=== PATIENT | male | born 1995 | race Caucasian/White ===

== ENCOUNTER 2023-02-16 09:41 | Day surgery (SDC) | payer OTHER, MEDICAID, SELFPAY ==
--- NOTE | 2023-02-16 | ESO_PTH ---
PATIENT: LOUIE PRIETO LOC: EN U#:[id number] AGE/SX: 27/M ROOM: RE02/16/[address]: Dr. Geoff Brar DO : 1995 BED: DIS: 02/16/2023 SPEC #: [id number] RECD: 02/16/23 13:12 STATUS: ABNER REQ #: [id number] CHIDI: 02/16/23 00:[address]: Geoff Brar DEPT: SURGICAL PATHOLOGY RECD BY: Brian Medley ENTERED: 02/16/23 13:12 SP TYPE: LINDA GALVAN DR: Dr. Max Mariee MD Tissues: Esophagus, NOS Procedures: Surgery Specimen Level IV HEADER OPERATION: EGD ([facility] biopsy, dilation PRE-OP DIAGNOSIS: Eosinophilic esophagitis TISSUE SUBMITTED: Proximal esophagus biopsy MICROSCOPIC DIAGNOSIS Proximal esophagus, biopsy: No pathologic change. AM:trixie 02/17/2023 MICROSCOPIC DESCRIPTION Slides are reviewed. GROSS DESCRIPTION Received in fixative is one container labeled with the patient's name and designated proximal esophagus biopsy. The specimen consists of multiple irregular fragments of light flores soft tissue that in aggregate measure 1.0 x 0.5 x 0.1 cm. The specimen is totally submitted in one cassette. / AM:trixie 02/16/2023 TC:5 CPT: 79341
--- NOTE | 2023-02-16 09:49 | PCM.HP.BLA ---
History and Physical Date of Admission: 02/16/23 LOUIE PRIETO, is a 27 M who presents to the office today to establish with adult GI for EOE. Used to see [facility] for EOE which has been well controlled for about 5 yrs on omeprazole 20 mg BID and budesonide 8 mL inh daily. Prior to that he had dysphagia. Required multiple esophageal dilations. Last EGD probably was in 2017. No recent dysphagia, no vomiting. He doesn't appear to have any pain, he is nonverbal. Hx of constipation but bowels are regular on miralax. 04/2022 cbc unremarkable with normal eosinophils, cmp unremarkable ROS Const Constitutional: No fatigue ENT ENT: No difficulty swallowing Gastro GI: No abdominal pain, belching, bloating, change in bowel habits, change in stool character, coffee ground emesis, constipation, cramping, diarrhea, heartburn, difficulty swallowing, feeling full early, excessive flatus, incontinent of stools, Vomiting blood/hematemesis, Blood in stool, loose stools, Black,tarry stools, nausea/dyspepsia, pain with swallowing, vomiting or other Musc Musculoskeletal: No joint pain Skin Skin: No yellowing of the eye or itchy eyes Psych Psychiatric: No anxiety and No depression Endo Endocrine: No fatigue Aller/Imm Allergy/Immunologic: No itchy eyes Chad/Lymp Hematologic/Lymphatic: No easy bleeding or easy bruising Exam Const General: cooperative and comfortable Nutritional Appearance: average body habitus Orientation: alert and awake Other: nonverbal Quality Reporting Tobacco Screening ([facility] 138) Smoking Status: Never smoker Assessment and Plan Assessment and Plan (1) Eosinophilic esophagitis: ?Status:?Chronic ?Plan: Current regimen is effective so will continue with omeprazole 20 mg bid and budesonide inh daily EGD to eval esophagus, f/u in office 2 wks later to discuss bx results I have examined the patient and the H&P has been reviewed. There are no clinical changes since date of exam.
[2023-02-16] MEDS: Lactated Ringers 1,000 ML 15 ML IV (10:25)
[2023-02-16 10:26] VITALS: BP 103/71; PULSE 77; RESP 16; TEMP 37.2; O2SAT 96; BMI 21.0
--- NOTE | 2023-02-16 10:30 | SUR.PREOP ---
pt non verbal. questions answered by parents
[2023-02-16 11:05] VITALS: BP 100/63; BP 103/71; PULSE 89; RESP 16; TEMP 36.7; O2SAT 95
[2023-02-16 11:10] VITALS: BP 103/71; BP 98/67; PULSE 85; RESP 16; O2SAT 96
--- NOTE | 2023-02-16 11:10 | OP.CCLET_ITS ---
02/16/2023 Max Mariee Re : Upper GI endoscopy procedure for Yoan Dennis Kodi This procedure was performed on Thursday, February 16, 2023. My impressions and recommendations are as follows: Impressions : - Esophageal mucosal changes secondary to eosinophilic esophagitis. Biopsied. - Esophageal mucosal changes secondary to eosinophilic esophagitis. Dilated. - Normal stomach. - Normal first portion of the duodenum. Recommendations : - Discharge patient to home. - Resume previous diet. - Continue present medications. - Await pathology results. - Repeat upper endoscopy. My findings are described in the full procedure note, which is enclosed. If I can be of further assistance, please feel free to contact me at . Sincerely, Geoff Brar, 02/16/2023 11:09:40 AM This report has been signed electronically.
--- NOTE | 2023-02-16 11:10 | OP.EGD_ITS ---
Patient Name: Yoan Chang Procedure Date: 02/16/2023 10:35 AM Date of : 1995 Age: 27 Procedure: Upper GI endoscopy Indications: Dysphagia Providers: Geoff Brar DO Referring MD: Geoff Brar DO Medicines: Monitored Anesthesia Care Patient Profile: This is a 27 year old male. Refer to note in patient chart for documentation of history and physical. Patient has symptoms of dysphagia with both liquids and solids. The symptoms first began in the remote past. He is status post EGD for dilation three years ago. Complications: No immediate complications. Procedure: Pre-Anesthesia Assessment: - Prior to the procedure, a History and Physical was performed, and patient medications and allergies were reviewed. The risks and benefits of the procedure and the sedation options and risks were discussed with the patient. All questions were answered and informed consent was obtained. Patient identification and proposed procedure were verified by the physician in the pre-procedure area. Mental Status Examination: alert and oriented. Airway Examination: normal oropharyngeal airway and neck mobility. Respiratory Examination: clear to auscultation. CV Examination: normal. Prophylactic Antibiotics: The patient does not require prophylactic antibiotics. Prior Anticoagulants: The patient has taken no previous anticoagulant or antiplatelet agents. After reviewing the risks and benefits, the patient was deemed in satisfactory condition to undergo the procedure. The anesthesia plan was to use monitored anesthesia care (MAC). Immediately prior to administration of medications, the patient was re-assessed for adequacy to receive sedatives. The heart rate, respiratory rate, oxygen saturations, blood pressure, adequacy of pulmonary ventilation, and response to care were monitored throughout the procedure. The physical status of the patient was re-assessed after the procedure. After obtaining informed consent, the endoscope was passed under direct vision. Throughout the procedure, the patient's blood pressure, pulse, and oxygen saturations were monitored continuously. The Endoscope was introduced through the mouth, and advanced to the second part of duodenum. The upper GI endoscopy was accomplished without difficulty. The patient tolerated the procedure well. Scope In: 10:52:10 AM Scope Out: 11:00:59 AM Total Procedure Duration Time 0 hours 8 minutes 49 seconds Findings: Mucosal changes including ringed esophagus, feline appearance and longitudinal furrows were found in the entire esophagus. Biopsies were obtained from the proximal and distal esophagus with cold forceps for histology of suspected eosinophilic esophagitis. Verification of patient identification for the specimen was done. Estimated blood loss was minimal. Mucosal changes including ringed esophagus were found in the proximal esophagus. A guidewire was placed and the scope was withdrawn. Dilation was performed with a Savary dilator with no resistance at 48 Fr. The entire examined stomach was normal. The first portion of the duodenum was normal. Impression: - Esophageal mucosal changes secondary to eosinophilic esophagitis. Biopsied. - Esophageal mucosal changes secondary to eosinophilic esophagitis. Dilated. - Normal stomach. - Normal first portion of the duodenum. Recommendation: - Discharge patient to home. - Resume previous diet. - Continue present medications. - Await pathology results. - Repeat upper endoscopy. Procedure Code(s): --- Professional --- 75743, Esophagogastroduodenoscopy, flexible, transoral; with insertion of guide wire followed by passage of dilator(s) through esophagus over guide wire 73220, 59, Esophagogastroduodenoscopy, flexible, transoral; with biopsy, single or multiple CPT copyright 2017 [employer]. All rights reserved. The codes documented in this report are preliminary and upon business law teacher review may be revised to meet current compliance requirements. Geoff Brar DO 02/16/2023 11:09:40 AM This report has been signed electronically. Number of Addenda: 0 Note Initiated On: 02/16/2023 10:35 AM
[2023-02-16 11:15] VITALS: BP 103/71; BP 96/64; PULSE 64; RESP 16; O2SAT 99
[2023-02-16 11:20] VITALS: BP 103/71; BP 104/63; PULSE 70; RESP 16; TEMP 36.8; O2SAT 99
[2023-02-16 11:52] VITALS: BP 103/71
== END 2023-02-16 12:10 | disposition home or self-care (01) ==
LOC: EN 09:42 → AC 09:44
PROVIDERS: PCP Family Medicine; Referring Provider Family Medicine; Visit Provider Internal Medicine Gastroenterology
PROC: 0DJ08ZZ Inspection of Upper Intestinal Tract, Via Natural or Artificial Opening Endoscopic (ICD-10-PCS; CPT 43235; principal; 2023-02-16 10:40)
DX: K20.0 Eosinophilic esophagitis (principal); R13.10 Dysphagia, unspecified; Z79.899 Other long term (current) drug therapy
CPT/HCPCS: 43239; 43248; 88305; J7120; C1769; J2405

== ENCOUNTER 2023-12-10 06:00 | Day surgery (SDC) | payer MEDICAID, SELFPAY ==
--- OUTSIDE RECORDS SUMMARY | 2023-12-10 06:06 | XMS RPT_ITS | CCD ---
Author Name Unknown Address [address] [place] [address] Organization [facility] Care Team Providers Care Public Health Staff Nurse Name Role Phone RICKY SCHMIDT Primary Care Unavailable RICKY SCHMIDT Admitting Unavailable SANJUANITA RANGEL Consulting Unavailable RICKY SCHMIDT Attending Unavailable PROVIDER, UNKNOWN Consulting Unavailable PROVIDER, UNKNOWN Consulting Unavailable PROVIDER, UNKNOWN Consulting Unavailable Octavio Merritt Primary Care Provider Allergies Allergy Classification Reported Allergen(s) Allergy Type Date of Onset Reaction(s) Facility Macrolides (antibiotic) (2 sources) Macrolides (Antibiotic) Drug Allergy 04-17-20 03 [facility] Penicillins (antibiotic) (1 source) Penicillins Drug Allergy 04-17-20 03 [facility] Shellfish (1 source) Shellfish Food Allergy 02-10-20 14 Unknown [facility] Sulfonamides (antibiotic) (1 source) Sulfonamides (Antibiotic) Drug Allergy 04-17-20 03 [facility] Unclassified (1 source) Dairy-Aid Propensity to adverse reactions to drug 06-23-20 16 Unknown [facility] Work Phone: (1 source) Azithromycin Drug Allergy [facility] Repository (1 source) Macrolides (Antibiotic) Drug allergy (disorder) [facility] Repository (1 source) Penicillin Drug Allergy [facility] Repository (1 source) Shellfish; Translations: [SHELLFISH] Food allergy (disorder) [facility] Repository (1 source) Sulfamethoxazole / Trimethoprim Drug Allergy [facility] Repository (1 source) Sulfonamides (Antibiotic) Drug allergy (disorder) [facility] Repository Medications Completed/Discontinued Medications Medication Drug Class(es) Dates Sig (Normalized) Sig (Original) calcium carbonate 1250 mg oral capsule (1 source) Start: 01-15-2007 CALCI-MIX 500 MG (1,250 MG) CAP Take one(1) tablet daily. 0 01/15/2007 Active Problems Active Problems Problem Classification Problem Date Documented Da te Episodic/Chronic Esophageal disorders (2 sources) Eosinophilic esophagitis; Translations: [Eosinophilic esophagitis] Onset: 03-16-2014 05-11-2016 Chronic Past or Other Problems Problem Classification Problem Date Documented Da te Episodic/Chronic Other gastrointestinal disorders (1 source) Constipation; Translations: [Constipation, unspecified] Onset: 03-21-2016 03-21-2016 Episodic Other nutritional; endocrine; and metabolic disorders (1 source) Developmental delay; Translations: [Unspecified lack of expected normal physiological development in childhood] Onset: 03-21-2016 05-11-2016 Episodic Results Test Name Value Interpretation Reference Range Facil ity Encounters Encounter Date Encounter Type Care Provider Facility Start: 12-25-2020 End: 12-25-2020 Emergency department patient visit [facility] Start: 04-08-2016 End: 04-08-2016 Refill Laurel Ziegler MD Work Phone: Peds Gastroenterology Procedures Date Procedure Procedure Detail Performing Clinician Start: 02-09-2014 H/O: surgery Status post di latation of esophageal stricture Laurel Ziegler MD Work Phone: Plan of Treatment Date Care Activity Detail Author Start: 06-26-2021 Influenza vaccination INFLUENZA (Sea son Ended) [facility] Start: 2016 Urine microalbumin profile DTAP,TDAP ,TD (1 - Tdap) [facility] Start: 2015 HEPATITIS C SCREENING HEPATITIS C SC REENING [facility] Start: 2015 HIV SCREENING HIV SCREENING [facility] Start: 2009 Adult depression [facility] assessment DEPRESSION SCREENING [facility] Start: 2008 HPV VACCINE (1 - Mal e 2-dose series) HPV VACCINE (1 - Male 2-dose series) [facility] Payers Date Payer Category Payer Medicaid MEDICAID [facility] MEDICAID [id number] 2014-Present Medicaid [id number] 2003 Unknown [employer] [place] [facility] [id number] 2003-2019 Indemnity [id number] 1969 Unknown [id number] Unknown [id number] Unknown [id number] Social History Date Type Detail Facility Start: 03-21-2016 Tobacco smoking status NHIS Never sm oker [facility] Start: 03-21-2016 Alcohol intake Not Asked [facility] Start: 1995 Sex Assigned At Not on file [facility] History of Past illness Narrative 05-11-2016 Note Date & Type Note Facility documented as of this encounter (statuses as of 02/26/2021) [facility] Note 04-09-2016 Telephone Encounter - Laurel Ziegler - 04/09/2016 1:31 PM EDT Note Date & Type Note Facility 04-09-2016 Miscellaneous Notes Patient's request for medication is as follows Signed Prescriptions Disp Refills PREVACID 30 mg disintegrating tablet 30 tablet 6 Sig: DISSOLVE ONE TABLET in MOUTH 1/2 HOUR BEFORE BREAKFAST POLINA: No Authorizing Provider: LAUREL ZIEGLER Order entered - escripted. 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 Advance Directive(s) 05/11/2016 9:45 AM Advance Directive(s) 04/15/2016 9:24 AM Additional Source Comments (unrecognized sect ion and content) No Status Records FoundNo Status Records FoundNo Status Records Found INFORMATION SOURCE (unrecogn ized section and content) DATE CREATED AUTHOR AUTHOR'S ORGANIZ ATION 05/13/2022 [facility] DATE CREATED AUTHOR AUTHOR'S ORGANIZ ATION 06/24/2022 [facility] Source Comments (unrecognize d section and content) In the event this informatio n is protected by the Federal Confidentiality of Alcohol and Drug Abuse Patient Records regulations: The Federal rules restrict any use of the information to criminally investigate or prosecute any alcohol or drug abuse patient.[facility] Reason for Visit (unrecogniz ed section and content) FOR RECORDS PERTAINING TO PATIENTS WHO ARE OR HAVE BEEN ENROLLED IN A CHEMICAL DEPENDENCY/SUBSTANCEABUSE PROGRAM, SOME INFORMATION MAY BE OMITTED. This clinical summary was aggregated from multiple sources. Caution should be exercised in using it in the provision of clinical care. This summary normalizes information from multiple sources, and as a consequence, information in this document may materially change the coding, format and clinical context of patient data. In addition, data may be omitted in some cases. CLINICAL DECISIONS SHOULD BE BASED ON THE PRIMARY CLINICAL RECORDS. [employer] [facility]. provides no warranty or guarantee of the accuracy or completeness of information in this document.
[2023-12-10 06:35] VITALS: BP 105/64; PULSE 73; RESP 16; TEMP 36.6; O2SAT 98; BMI 21.9
[2023-12-10] MEDS: Lactated Ringers 1,000 ML 15 ML IV (06:38)
--- NOTE | 2023-12-10 07:00 | EGD_PTH ---
PATHOLOGY RESULTS PATIENT: LOUIE PRIETO LOC: EN U#:[id number] AGE/SX: 28/M ROOM: RE12/10/[address]: Dr. Geoff Brar DO : 1995 BED: DIS: 12/10/2023 SPEC #: [id number] RECD: 12/10/23 10:26 STATUS: ABNER REGal #: [id number] CHIDI: 12/10/23 07:[address]: Geoff Brar DEPT: SURGICAL PATHOLOGY RECD BY: Brionna Perez ENTERED: 12/10/23 11:21 SP TYPE: EGD BIOPSY COLE DR: Dr. Max Mariee MD Tissues: Esophagus, NOS Procedures: Surgery Specimen Level IV HEADER OPERATION: EGD with biopsy PRE-OP DIAGNOSIS: Eosinophilic esophagitis TISSUE SUBMITTED: Random esophagus biopsy MICROSCOPIC DIAGNOSIS Esophagus, random biopsy: Fragments of benign squamous mucosa with mild congestion. See comment. KRISTIE:trixie 12/14/2023 COMMENT Increased number of eosinophils consistent with eosinophilic esophagitis are not seen. Correlation with clinical, endoscopic findings and appropriate follow up are necessary. MICROSCOPIC DESCRIPTION Slides are reviewed. GROSS DESCRIPTION Received in fixative is one container labeled with the patient's name and designated random esophagus biopsy. The specimen consists of multiple irregular fragments of light flores soft tissue that in aggregate measure 0.8 x 0.8 x 0.1 cm. The specimen is totally submitted in one cassette. / SJ/bl 12/10/23 TC: CPT: 47643
--- NOTE | 2023-12-10 07:07 | HP.PCM_ITS ---
History and Physical Date of Admission: 12/10/23 LOUIE PRIETO, is a 28 M who [facility] GI: ? EGD 08.02.19 mucosal changes EOE, 4-15/field; gastritis. *BGI established 12.11.22 to establish with adult GI for previously diagnosed EOE at [facility], well controlled with omeprazole and budesonide for the last 5 years. Reports history of multiple dilations. ? EGD 02.16.23 mucosal changes of EOE with distal narrowing, Savary 48F, EOE not seen on path. No pathologic changes. OV 03.04.23 doing well; recommend Dupixent as budesonide and omeprazole are difficult. OV 11/20/23 Per parents doing well. Does not appear to be in any discomfort recently. ROS Const Constitutional: No fatigue ENT ENT: No difficulty swallowing Gastro GI: No abdominal pain, belching, bloating, change in bowel habits, change in stool character, coffee ground emesis, constipation, cramping, diarrhea, heartburn, difficulty swallowing, feeling full early, excessive flatus, incontinent of stools, Vomiting blood/hematemesis, Blood in stool, loose stools, Black,tarry stools, nausea/dyspepsia, pain with swallowing, vomiting or other Musc Musculoskeletal: No joint pain Skin Skin: No yellowing of the eye or itchy eyes Psych Psychiatric: No anxiety and No depression Endo Endocrine: No fatigue Aller/Imm Allergy/Immunologic: No itchy eyes Chad/Lymp Hematologic/Lymphatic: No easy bleeding or easy bruising Exam Const General: cooperative and no acute distress Other: nonverbal but he smiles and interacts nonverbally Quality Reporting Tobacco Screening ([facility] 138) Smoking Status: Never smoker Assessment and Plan Assessment and Plan (1) Eosinophilic esophagitis: Status: Chronic Plan: Discussed EGD findings and bx result with parents with patient present. They are interested in continuing Dupixent for EOE. Difficult to give budesonide inhaler as well as bid omeprazole. On EGD Dr Brar found signs of EOE--ringed esophagus, feline appearance, longitudinal furrows. Pt required dilation of narrowed rings in proximal esophagus. Pt is under his dad's insurance until he turns 28 in August. Their specialty pharmacy is [facility]. Will request pathology reports from [facility] and [facility]. Orders: Orders EGD 11/27/23 K20.0 - Eosinophilic esophagitis I have examined the patient and the H&P has been reviewed. There are no clinical changes since date of exam.
[2023-12-10 07:25] VITALS: BP 102/66; BP 105/64; PULSE 88; RESP 16; TEMP 36.6; O2SAT 98
--- NOTE | 2023-12-10 07:25 | OP.CCLET_ITS ---
12/10/2023 Max Mariee Re : Upper GI endoscopy procedure for Yoan Dennis Kodi This procedure was performed on November. My impressions and recommendations are as follows: Impressions : - Normal esophagus. - Normal stomach. - No gross lesions in the first portion of the duodenum. - Biopsies were taken with a cold forceps for evaluation of eosinophilic esophagitis. Recommendations : - Discharge patient to home. - Resume previous diet. - Continue present medications. - Await pathology results. My findings are described in the full procedure note, which is enclosed. If I can be of further assistance, please feel free to contact me at . Sincerely, Geoff Brar, 12/10/2023 7:24:55 AM This report has been signed electronically.
--- NOTE | 2023-12-10 07:25 | OP.EGD_ITS ---
Patient Name: Yoan Chang Procedure Date: 12/10/2023 7:13 AM Date of : 1995 Age: 28 Procedure: Upper GI endoscopy Indications: Dysphagia Providers: DO Alicia Russell MD: Max Mariee Medicines: Monitored Anesthesia Care Patient Profile: This is a 28 year old male. Refer to note in patient chart for documentation of history and physical. Patient has symptoms of chronic dysphagia. Complications: No immediate complications. Procedure: Pre-Anesthesia Assessment: - Prior to the procedure, a History and Physical was performed, and patient medications and allergies were reviewed. The patient is competent. The risks and benefits of the procedure and the sedation options and risks were discussed with the patient. All questions were answered and informed consent was obtained. Patient identification and proposed procedure were verified by the physician in the pre-procedure area. Mental Status Examination: alert and oriented. Airway Examination: normal oropharyngeal airway and neck mobility. Respiratory Examination: clear to auscultation. Prophylactic Antibiotics: The patient does not require prophylactic antibiotics. Prior Anticoagulants: The patient has taken no anticoagulant or antiplatelet agents. After reviewing the risks and benefits, the patient was deemed in satisfactory condition to undergo the procedure. The anesthesia plan was to use monitored anesthesia care (MAC). Immediately prior to administration of medications, the patient was re-assessed for adequacy to receive sedatives. The heart rate, respiratory rate, oxygen saturations, blood pressure, adequacy of pulmonary ventilation, and response to care were monitored throughout the procedure. The physical status of the patient was re-assessed after the procedure. After obtaining informed consent, the endoscope was passed under direct vision. Throughout the procedure, the patient's blood pressure, pulse, and oxygen saturations were monitored continuously. The gastroscope was introduced through the mouth, and advanced to the second part of duodenum. The upper GI endoscopy was accomplished without difficulty. The patient tolerated the procedure well. Scope In: 7:16:52 AM Scope Out: 7:19:30 AM Total Procedure Duration Time 0 hours 2 minutes 38 seconds Findings: The examined esophagus was normal. Biopsies were obtained from the proximal and distal esophagus with cold forceps for histology of suspected eosinophilic esophagitis. The entire examined stomach was normal. No gross lesions were noted in the first portion of the duodenum. Impression: - Normal esophagus. - Normal stomach. - No gross lesions in the first portion of the duodenum. - Biopsies were taken with a cold forceps for evaluation of eosinophilic esophagitis. Recommendation: - Discharge patient to home. - Resume previous diet. - Continue present medications. - Await pathology results. Procedure Code(s): --- Professional --- 76680, Esophagogastroduodenoscopy, flexible, transoral; with biopsy, single or multiple CPT copyright 2021 [employer]. All rights reserved. The codes documented in this report are preliminary and upon institution director review may be revised to meet current compliance requirements. Geoff Brar DO 12/10/2023 7:24:55 AM This report has been signed electronically. Number of Addenda: 0 Note Initiated On: 12/10/2023 7:13 AM
[2023-12-10 07:30] VITALS: BP 105/61; BP 105/64; PULSE 83; RESP 18; O2SAT 99
[2023-12-10 07:35] VITALS: BP 103/62; BP 105/64; PULSE 75; RESP 18; TEMP 36.5; O2SAT 100
[2023-12-10 07:56] VITALS: BP 105/64
== END 2023-12-10 08:01 | disposition home or self-care (01) ==
LOC: EN 06:08 → AC 06:08
PROVIDERS: PCP Family Medicine; Referring Provider Family Medicine; Visit Provider Internal Medicine Gastroenterology
PROC: 0DJ08ZZ Inspection of Upper Intestinal Tract, Via Natural or Artificial Opening Endoscopic (ICD-10-PCS; CPT 43235; principal; 2023-12-10 06:55)
DX: K20.0 Eosinophilic esophagitis (principal); G80.9 Cerebral palsy, unspecified; R13.10 Dysphagia, unspecified; Z79.899 Other long term (current) drug therapy; J45.909 Unspecified asthma, uncomplicated
CPT/HCPCS: 43239; 88305; J7120; J2405

== ENCOUNTER 2025-01-13 19:00 | Emergency (ER) | payer MEDICAID, SELFPAY ==
[2025-01-13 19:00] VITALS: BP 121/75; PULSE 125; RESP 20; TEMP 37.2; O2SAT 96; BMI 22.4
--- NOTE | 2025-01-13 19:17 | EDS_ITS ---
HPI HPI - GI History of Present Illness Chief Complaint: Nausea/Vomiting Informant: parent Limited: other (Patient is nonverbal) Nausea/Vomiting/Emesis GI Symptom: Positive for Nausea and Vomiting Quality: Positive for Nonbilious; Negative for Blood streaks, Coffee ground or Hematemesis Diarrhea/Melena/Hematochezia GI Symptom: Negative for Diarrhea, Melena or Hematochezia Associated Symptoms Associated Symptoms: Negative for Dysuria, Frequency or Hematuria Narrative Narrative: Patient presents with nausea and vomiting for the past 3 days. Patient is nonverbal and is a poor informant. Mother states patient has been having some nausea and vomiting but has been able to keep some liquids down. Mother denies any diarrhea, melena, or hematochezia. Mother states the patient has not been indicating any abdominal pain. Mother states patient has been healing tired over the past couple days as well. Mother states patient had a temperature of 100.7 at home today. Mother states the patient has been having a cough. [facility] Medical History Difficulty chewing Difficulty swallowing Gastric reflux Non-smoker Asthma Constipation Eosinophilic esophagitis Cerebral palsy Seizure disorder GERD (gastroesophageal reflux disease) Cognitive developmental delay Home Medications ?Medication ?Instructions ?Recorded ?Last Taken ?Type calcium carbonate (Calcium 500) 500 mg PO DAILY Unknown History multivitamin 1 tab PO DAILY 02/09/23 Unkn own History budesonide 0.25 mg/2 mL suspension 0.25 mg (2 mL) inha lation BID #360 09/27/24 Unknown Rx for nebulization mL dupilumab 300 mg/2 mL subcutaneous 300 mg (2 mL) subcu t QWEEK EOE #8 09/28/24 Unknown Rx pen injector (Dupixent) mL omeprazole 20 mg capsule,delayed 20 mg PO BID #60 caps 12/19/24 Unknown Rx release polyethylene glycol 3350 17 4 g PO DAILY #238 GMS 11/27 02/17 Unknown Rx gram/dose oral powder ondansetron 4 mg disintegrating 4 mg PO Q8H PRN PRN Na usea #10 tabs 01/13/25 Unknown Rx tablet Allergy/AdvReac Type Severity Reaction Status Date / Time azithromycin (From Zithromax) Allergy Intermediate Rash Verified 01/13/25 19:00 Penicillins Allergy Intermediate Rash Verified 01/13/25 19:00 shellfish derived Allergy Intermediate Other Verified 01/13/25 19:00 Sulfa (Sulfonamide Allergy Intermediate Rash Verified 01/13/25 19:00 Antibiotics) milk (dairy) Allergy Other Verified 01/13/25 19:00 Family History no significant family his Surgical History History of esophagogastroduodenoscopy (EGD) Hx of colonoscopy History of myringotomy no surgical history Social History Smoking Status: Never smoker alcohol intake: never ROS ROS ED Review of Systems ROS Unobtainable: other Details: Patient is nonverbal Constitutional Constitutional ED: Reports fever(s); Denies chills ENT ENT ED: Denies rhinorrhea or sore throat Respiratory/Chest Respiratory/Chest: Reports cough; Denies dyspnea Gastrointestinal Gastrointestinal: Reports nausea and vomiting Genitourinary Genitourinary ED: Denies urinary frequency Integumentary Denies abscess or rash Neurologic Neurologic: Denies weakness Allergic/Immunologic Allergic/Immunologic ED: Denies mouth swelling or urticaria EXAM Physical Exam Const Vital Signs: 01/13/25 19:00 01/13/25 21:00 01/13/25 21:56 Temperature 99 F 99.5 F H Temperature Source Temporal Pulse Rate 125 H 92 94 Respiratory Rate 20 H 16 18 Blood Pressure 121/75 H 112/56 L 110/56 L Blood Pressure Mean 90 74 74 Pulse Ox 96 94 96 Oxygen Delivery Method Room Air Room Air Positive well nourished and well developed General Appearance ED: well developed and NAD HEENT Reports moist mucous membranes Neck supple and no JVD Resp normal respiratory effort and clear to auscultation bilaterally Cardio regular rhythm Rate: tachycardic GI non-distended Auscultation: normoactive bowel sounds Palpation: soft Neuro CN's II-XII intact bilaterally Sensorium / Orientation: alert MDM MDM MDM Narrative Medical decision making narrative: Differential diagnosis includes gastroenteritis, viral illness, dehydration, electrolyte abnormality, bowel obstruction, and perforation. Acute abdominal x- rays will be obtained to assess for bowel obstruction and perforation. CBC will be obtained to assess for leukocytosis and anemia. Comprehensive metabolic profile will be obtained to assess for hepatic function, renal function, and electrolyte abnormality. Lipase will be obtained to assess for pancreatitis. Lab Data Attestation: I reviewed the patient's lab results. Lab results narrative: CBC was reviewed and was within normal limits. Comprehensive metabolic profile was reviewed and was within normal limits. Lipase was reviewed and was normal at 27. Labs: Laboratory Results - last 24 hr 01/13/25 19:40 WBC 6.6 RBC 4.51 L Hgb 14.2 Hct 40.4 MCV 89.6 MCH 31.5 MCHC 35.1 RDW Std Deviation 43.4 RDW Coeff of Vladimir 13.2 Plt Count 169 MPV 9.1 Immature Gran % (Auto) 0.300 Neut % (Auto) 68.5 Lymph % (Auto) 22.9 [place] % (Auto) 7.7 Eos % (Auto) 0.3 Baso % (Auto) 0.3 Absolute Neuts (auto) 4.5 Absolute Lymphs (auto) 1.51 Nucleated RBC % 0 Sodium 138 Potassium 3.5 Chloride 99 Carbon Dioxide 23.9 Anion Gap 15 BUN 18 Creatinine 0.61 L Estim Creat Clear Calc 166.72 Est GFR (MDRD) Non-Af 135 BUN/Creatinine Ratio 28.7 H Glucose 100 H Calcium 8.9 Total Bilirubin 0.72 AST 20 ALT 11 Alkaline Phosphatase 63 Total Protein 6.4 Albumin 3.6 Globulin 2.8 Albumin/Globulin Ratio 1.3 Lipase 27 Radiography Diagnostic Testing: Clinical Impression(s) from Imaging Studies Acute Abdomen Series 01/13/25 20:00 IMPRESSION: Marked gaseous distention of the stomach, which is indeterminate and may represent developing bowel obstruction, gastric outlet obstruction or may be idiopathic. Clinical and laboratory correlation recommended. If clinically indicated, gastric tube placement may be useful for decompression. Reading Location: [facility] Acute abdominal x-rays were obtained. There are 4 views. On my independent interpretation, there is distention of the stomach. There are no air-fluid levels noted. There is no evidence of perforation. Radiologist also interpreted the x-rays and agrees. Treatment and Re-Evaluation :: Patient was given IV fluids and Zofran. Patient was feeling better on reevaluation. Patient was able to tolerate p.o. fluids. Patient was given a prescription for Zofran. Patient was instructed to start with a liquid diet and advance as tolerated. Parents were instructed to return if worse in any way. Parents understood and were agreeable with the plan. All questions were answered. Discharge Plan Triage Chief Complaint: Nausea/Vomiting ED Provider: Mani Cavazos Dx/Rx/DC Orders Clinical Impression: Nausea and vomiting Instructions: ED Vomiting (Adult) Prescriptions: New ondansetron 4 mg tablet,disintegrating 4 mg PO Q8H PRN PRN (Reason: Nausea) Qty: 10 0RF No Action calcium carbonate [Calcium 500] 500 mg calcium (1,250 mg) tablet,chewable 500 mg PO DAILY Dupixent Pen 300 mg/2 mL pen injector 300 mg subcut QWEEK Qty: 8 12RF multivitamin Tablet 1 tab PO DAILY budesonide 0.25 mg/2 mL suspension for nebulization 0.25 mg inhalation BID Qty: 360 3RF polyethylene glycol 3350 17 gram/dose powder 4 g PO DAILY Qty: 238 3RF omeprazole 20 mg capsule,delayed release(DR/EC) 20 mg PO BID Qty: 60 2RF Primary Care Provider: Max Mariee Referrals: Max Mariee MD [Primary Care Provider] - 3-5 Days Print Language: Indian Disposition Disposition: Home, Self Care Discharge Date/Time: 01/13/25 22:01
[2025-01-13] MEDS: 0.9% Normal Saline (1000mL) 1,000 ML 1000 ML IV (19:44)
[2025-01-13] MEDS: Ondansetron 4 MG/2 ML Vial IV (19:44)
--- NOTE | 2025-01-13 20:00 | RAD_ITS ---
PROCEDURE: ACUTE ABDOMEN INC CHEST 01/13/2025 REASON FOR EXAM: 29-year-old male, patient nonverbal, nausea and vomiting, fever since Thursday. TECHNIQUE: Supine and upright views of the abdomen. COMPARISON: None. FINDINGS: Visualization is limited by patient positioning. Bowel gas: Marked gaseous distention of the stomach. The bowel loops are otherwise normal caliber. Free air: No free air. Calcifications: No radiopaque foreign bodies. Bones: The bones are unremarkable. Mild rightward curvature of the lower thoracic spine. Chest: The visualized upper lung srivastava are unremarkable. The heart is grossly normal in size. RAD/Acute Abdomen Inc Chest IMPRESSION: Marked gaseous distention of the stomach, which is indeterminate and may repres ent developing bowel obstruction, gastric outlet obstruction or may be idiopathic. Clinical and laboratory correlation recommen ded. If clinically indicated, gastric tube placement may be useful for decompression. Reading Location: [id number]
[2025-01-13 20:10] LABS: Absolute Lymphocyte Count 1.51 X10^3/uL (0.83-4.51); Absolute Neutrophil Count 4.5 X10^3/uL (2.0-7.7); Basophil# 0.02 X10^3/uL; Basophil% 0.3 % (0-1); Eosinophil# 0.02 X10^3/uL; Eosinophils% 0.3 % (0-5); Hematocrit 40.4 % (40-54); Hemoglobin 14.2 g/dL (13.0-16.5); Lymphocyte # 1.51 X10^3/ul (0.83-4.51); Lymphocyte % 22.9 % (19-41); Mean Corp Hgb Conc 35.1 g/dL (32-36); Mean Corpuscular Hgb 31.5 pg (27.0-32.0); Mean Corpuscular Volume 89.6 fL (80-94); Mean Platelet Vol. 9.1 fl (6.2-12.0); Monocyte# 0.51 X10^3/uL; Monocyte% 7.7 % (0-10); NRBC Flagged by Analyzer 0 % (0-5); Neutrophil # 4.52 X10^3/uL (2.7-7.7); Neutrophil % 68.5 % (47-70); Platelet Count 169 K/mm3 (150-450); RBC Distribution Width CV 13.2 % (11.6-14.6); RBC Distribution Width SD 43.4 fl (35.1-43.9); Red Blood Count 4.51 M/mm3 (4.6-6.2); White Blood Count 6.6 K/mm3 (4.4-11.0)
[2025-01-13 20:17] LABS: ALB/GLOB Ratio 1.3 RATIO (0.9-2.4); AST(SGOT) 20 U/L (<=37); Alanine Aminotransfer ALT/SGPT 11 U/L (<=46); Albumin, Serum 3.6 g/dL (3.5-5.0); Alkaline Phosphatase 63 U/L (40-129); Anion Gap 15 (5-15); BUN 18 mg/dL (4-19); BUN/Creat Ratio 28.7 RATIO (10-20); Calcium,Total 8.9 mg/dL (7.6-11.0); Carbon Dioxide 23.9 mmol/L (21.0-32.0); Chloride 99 mmol/L (98-108); Creatinine, Serum 0.61 mg/dL (0.70-1.20); EST Glomerular Filtration Rate 135 (>60); Estimated Creatinine Clearance 166.72 ml/min (50-250); Globulin 2.8 g/dL (2.2-4.2); Glucose 100 mg/dL (70-99); Lipase 27 U/L (13-75); Potassium 3.5 mmol/L (3.3-5.1); Protein, Total 6.4 g/dL (5.9-8.4); Sodium Level 138 mmol/L (133-145); Total Bilirubin 0.72 mg/dL (0.00-1.30)
[2025-01-13 21:00] VITALS: BP 112/56; PULSE 92; RESP 16; O2SAT 94
[2025-01-13 21:56] VITALS: BP 110/56; PULSE 94; RESP 18; TEMP 37.5; O2SAT 96
== END 2025-01-13 22:01 | disposition home or self-care (01) ==
PROVIDERS: Emergency Provider Emergency Medicine; PCP Family Medicine; Visit Provider Emergency Medicine
DX: R11.2 Nausea with vomiting, unspecified (principal); Z79.899 Other long term (current) drug therapy
CPT/HCPCS: 74022; 80053; 83690; 85025; 96361; 96374; 99284; A4216; J2405